=== PATIENT | female | born 1945 | race Caucasian/White ===

== ENCOUNTER → 2018-02-20 | Outpatient (CLI) | payer OTHER ==
[~2018-02-20] VITALS: Ht 160 cm; Wt 48.1 kg
[~2018-02-20] MED LIST: CALCIUM 500 MG1 EACH PO; CIPRO250 MG PO; FLONASE16 G1 BOTH NARES; FLOVENT 11120 INHALA IH; MILK OF MAGN PO; MIRTAZAPINE7.5 MG PO; NASACORT10.8 ML BOTH NARES; PULMICORT FLE180 MCG IH; SYNTHROID75 MCG PO; VITAMIN D31000 UNI2 PO; VITAMIN E1000 UNI1 PO; ZOFRAN ODT4 MG PO
[2018-02-20 11:13] VITALS: BP 127/62
== END | disposition home or self-care (01) ==
LOC: IVINF 02-08 15:00
DX: M81.0 Age-related osteoporosis without current pathological fracture (principal)
CPT/HCPCS: 96365; J3489